=== PATIENT | male | born 1965 | race African-American/Black ===

== ENCOUNTER 2017-03-18 11:08 | Emergency (ER) | payer MEDICAID ==
[~2017-03-18] VITALS: Ht 185.4 cm; Wt 67.6 kg
[2017-03-18] MEDS ORDERED: CELECOXIB200 MG PO (12:26)
[2017-03-18] MEDS ORDERED: LORADAMED10 MG PO (12:26)
[2017-03-18] MEDS ORDERED: NIFEDIPINE ER30 MG PO (12:26)
[2017-03-18] MEDS ORDERED: GABAPENTIN300 MG PO (12:26)
[2017-03-18] MEDS ORDERED: ACETAMINOPHEN325 M3 PO (12:26)
[2017-03-18 14:15] LABS: CHLORIDE 103 mEq/L (99-109); POTASSIUM 4.4 mEq/L (3.7-5.4); SODIUM 140 mEq/L (136-147)
[2017-03-18 14:17] LABS: GLUCOSE 85 mg/dL (70-99)
[2017-03-18 14:18] LABS: ANION GAP 10 MEQ/L (2-14)
[2017-03-18 14:21] LABS: GFR ESTIMATE (CALCULATED) > 59 mL/min/
[2017-03-18 14:22] LABS: UREA NITROGEN (BUN) 13 mg/dL (9-23)
[2017-03-18 14:24] LABS: TROP-I INTERPRETATION NEGATIVE; TROPONIN-I < 0.01 ng/mL (0.0-0.30)
[2017-03-18 15:03] VITALS: BP 176/86
== END 2017-03-18 16:14 | disposition home or self-care (01) ==
LOC: EME 11:08
PROVIDERS: Physician Assistant
DX: Z76.0 Encounter for issue of repeat prescription (principal); E78.00 Pure hypercholesterolemia, unspecified; R00.2 Palpitations; M19.90 Unspecified osteoarthritis, unspecified site; G89.21 Chronic pain due to trauma; M79.606 Pain in leg, unspecified; M25.519 Pain in unspecified shoulder; I10 Essential (primary) hypertension; F17.200 Nicotine dependence, unspecified, uncomplicated
CPT/HCPCS: 80048; 83735; 84484; 93005; 99281; 99283